=== PATIENT | female | born 1935 | race Caucasian/White ===

== ENCOUNTER 2023-05-25 16:55 | Inpatient (IN) ==
[2023-05-25] MEDS ORDERED: 0.9 % SODIUM CHLORIDE 500 ML IV SCH (17:30)
[2023-05-25 18:23] LABS: Basophils # (Auto) 0.02 K/mcL (0.00-0.30); Basophils % (Auto) 0.2 % (0.0-2.0); Eosinophils # (Auto) 0.01 K/mcL (0.00-0.70); Eosinophils % (Auto) 0.1 % (0.0-7.0); Hematocrit 34.1 % (34.1-44.9); Hemoglobin 10.8 g/dL (11.2-15.7); Lymphocytes # (Auto) 1.82 K/mcL (1.50-4.80); Lymphocytes % (Auto) 19.6 % (15.5-49.0); Mean Cell Volume 98.6 fL (80.0-100.0); Mean Corpuscular HGB Conc 31.7 g/dL (31.0-36.0); Mean Platelet Volume 11.3 fL (8.8-12.5); Monocytes # (Auto) 0.69 K/mcL (0.10-0.90); Monocytes % (Auto) 7.4 % (1.0-12.0); Neutrophils % (Auto) 72.4 % (38.0-78.0); Platelet Count 162 K/mcL (140-440); RBC 3.46 M/mcL (3.59-5.38); Red Cell Distribution Width 13.8 % (11.5-14.5); WBC 9.3 K/mcL (4.5-11.0)
[2023-05-25 18:36] LABS: ALT/SGPT 11 U/L (<40); AST/SGOT 15 U/L (<32); Albumin 3.3 gm/dL (3.2-5.2); Albumin/Globulin Ratio 1.2 (1.0-2.3); Alkaline Phosphatase 65 U/L (39-117); Blood Urea Nitrogen 18 mg/dL (8-23); Calcium 8.6 mg/dL (8.6-10.4); Carbon Dioxide 25 mmol/L (22-30); Chloride 106 mmol/L (96-108); Globulin 2.7 gm/dL (2.2-3.7); Glomerular Filtration Rate 78; Glucose 111 mg/dL (70-105)
[2023-05-25] MEDS ORDERED: PIPERACILLIN SODIUM/TAZOBACTAM 3.375 GM in DEXTROSE 5% IN WATER 50 ML IV ONE (18:39)
[2023-05-25] MEDS ORDERED: 0.9 % SODIUM CHLORIDE 500 ML IV ONE (18:50)
[2023-05-25 20:19] LABS: Appearance,Urine HAZY (Clear); Bacteria,Urine FEW /hpf (0); Bilirubin,Urine Negative (Negative); Color,Urine Yellow; Culture Indicated,Urine Yes; Glucose,Urine (UA) Negative (Negative); Ketones,Urine 20 mg/dL (Negative); Leukocyte Esterase,Urine Negative /uL (Negative); Mucus,Urine FEW /hpf; Nitrate,Urine Negative (Negative); Protein,Urine 30 mg/dL (Negative); Specific Gravity,Urine 1.023 (1.000-1.035); Urine Blood 0.03 mg/dL (Negative); Urine Hyaline Cast 8 /lph (0-2); Urine RBC 1 /hpf (0-3); Urine Squamous Epithelial Cell 0 /hpf (0-4); Urine WBC 10 /hpf (0-4)
[2023-05-25] MEDS ORDERED: ACETAMINOPHEN 325 MG TABLET PO PRN (22:15)
[2023-05-25] MEDS ORDERED: 0.9 % SODIUM CHLORIDE 1,000 ML IV ONE (22:15)
[2023-05-25] MEDS ORDERED: POTASSIUM CHLORIDE 20 MEQ TABLET PO PRN ×2 (22:15)
[2023-05-25] MEDS ORDERED: POTASSIUM CHLORIDE 40 MEQ in DEXTROSE 5% IN WATER 500 ML IV PRN (22:15)
[2023-05-25] MEDS ORDERED: SENNOSIDES 1 TABLET PO PRN (22:15)
[2023-05-25] MEDS ORDERED: IPRATROPIUM/ALBUTEROL 3 ML AMPUL.NEB NEB PRN (22:15)
[2023-05-25] MEDS ORDERED: 0.9 % SODIUM CHLORIDE 1,000 ML IV SCH (22:15)
[2023-05-25] MEDS ORDERED: POLYETHYLENE GLYCOL 3350 17 GM PACKET PO PRN (22:15)
[2023-05-25] MEDS ORDERED: ONDANSETRON 4 MG/2 ML VIAL IV PRN (22:15)
[2023-05-25] MEDS ORDERED: ARTIFICIAL TEARS OPHTHALMIC SCH (22:15)
[2023-05-25] MEDS ORDERED: MAGNESIUM SULFATE 2 GM/50 ML BAG IV PRN (22:15)
[2023-05-25] MEDS: 0.9 % SODIUM CHLORIDE 10 ML SYRINGE IV SCH (22:42)
[2023-05-25] MEDS: DOCUSATE SODIUM 100 MG CAPSULE PO SCH (22:42)
[2023-05-26] MEDS: PIPERACILLIN SODIUM/TAZOBACTAM 3.375 GM in DEXTROSE 5% IN WATER 50 ML IV SCH ×5 (00:45→23:48)
[2023-05-26] MEDS: 0.9 % SODIUM CHLORIDE 10 ML SYRINGE IV SCH ×3 (05:27→23:49)
[2023-05-26] MEDS: PANTOPRAZOLE 40 MG VIAL IV SCH (08:02)
[2023-05-26] MEDS: DOCUSATE SODIUM 100 MG CAPSULE PO SCH ×2 (08:14→21:53)
[2023-05-26] MEDS: CARBOXYMETHYLCELLULOSE SODIUM 1 EACH DROPER.GEL OU SCH ×4 (08:15→21:07)
[2023-05-26] MEDS: ENOXAPARIN 40 MG/0.4 ML SYRINGE SQ SCH (08:15)
[2023-05-27] MEDS: 0.9 % SODIUM CHLORIDE 10 ML SYRINGE IV SCH ×3 (05:32→20:16)
[2023-05-27] MEDS: PIPERACILLIN SODIUM/TAZOBACTAM 3.375 GM in DEXTROSE 5% IN WATER 50 ML IV SCH ×3 (05:32→17:10)
[2023-05-27] MEDS: PANTOPRAZOLE 40 MG VIAL IV SCH (07:14)
[2023-05-27] MEDS: DOCUSATE SODIUM 100 MG CAPSULE PO SCH ×2 (08:56→20:01)
[2023-05-27] MEDS: ENOXAPARIN 40 MG/0.4 ML SYRINGE SQ SCH (08:56)
[2023-05-27] MEDS: CARBOXYMETHYLCELLULOSE SODIUM 1 EACH DROPER.GEL OU SCH ×4 (08:56→20:16)
[2023-05-27 09:14] LABS: Basophils # (Auto) 0.03 K/mcL (0.00-0.30); Basophils % (Auto) 0.4 % (0.0-2.0); Eosinophils # (Auto) 0.12 K/mcL (0.00-0.70); Eosinophils % (Auto) 1.6 % (0.0-7.0); Hemoglobin 10.7 g/dL (11.2-15.7); Lymphocytes # (Auto) 1.48 K/mcL (1.50-4.80); Lymphocytes % (Auto) 20.2 % (15.5-49.0); Mean Cell Volume 99.1 fL (80.0-100.0); Mean Corpuscular HGB Conc 31.5 g/dL (31.0-36.0); Mean Platelet Volume 10.8 fL (8.8-12.5); Monocytes # (Auto) 0.43 K/mcL (0.10-0.90); Monocytes % (Auto) 5.9 % (1.0-12.0); Neutrophils % (Auto) 71.5 % (38.0-78.0); Platelet Count 140 K/mcL (140-440); RBC 3.43 M/mcL (3.59-5.38); Red Cell Distribution Width 13.4 % (11.5-14.5); WBC 7.3 K/mcL (4.5-11.0)
[2023-05-27 10:25] LABS: ALT/SGPT 12 U/L (<40); AST/SGOT 15 U/L (<32); Albumin 3.1 gm/dL (3.2-5.2); Albumin/Globulin Ratio 1.2 (1.0-2.3); Alkaline Phosphatase 55 U/L (39-117); Bilirubin,Direct 0.3 mg/dL (<0.3); Bilirubin,Total 1.2 mg/dL (0.1-1.0); Blood Urea Nitrogen 11 mg/dL (8-23); Calcium 8.2 mg/dL (8.6-10.4); Carbon Dioxide 22 mmol/L (22-30); Chloride 107 mmol/L (96-108); Globulin 2.5 gm/dL (2.2-3.7); Glomerular Filtration Rate 83; Glucose 84 mg/dL (70-105); Lactate Dehydrogenase 157 U/L (135-225); Phosphorous 2.5 mg/dL (2.5-4.5); Triglycerides 99 mg/dL (<150); Uric Acid 2.4 mg/dL (2.5-8.0)
[2023-05-27] MEDS ORDERED: LORATADINE 10 MG TABLET PO PRN (14:11)
[2023-05-27] MEDS ORDERED: SODIUM CHLORIDE NASAL 1 SPRAY BOTTLE NAS PRN (14:12)
[2023-05-28] MEDS: PIPERACILLIN SODIUM/TAZOBACTAM 3.375 GM in DEXTROSE 5% IN WATER 50 ML IV SCH ×3 (00:44→11:23)
[2023-05-28] MEDS: 0.9 % SODIUM CHLORIDE 10 ML SYRINGE IV SCH (05:55)
[2023-05-28] MEDS: PANTOPRAZOLE 40 MG VIAL IV SCH (07:29)
[2023-05-28] MEDS: DOCUSATE SODIUM 100 MG CAPSULE PO SCH (09:10)
[2023-05-28] MEDS: ENOXAPARIN 40 MG/0.4 ML SYRINGE SQ SCH (09:10)
[2023-05-28] MEDS: CARBOXYMETHYLCELLULOSE SODIUM 1 EACH DROPER.GEL OU SCH (09:10)
== END 2023-05-28 12:15 | DRG 871 ==
LOC: ED 16:55 → MEDSUR 22:05
PROVIDERS: ADMIT Internal Medicine; ATTEND Internal Medicine